=== PATIENT | female | born 1995 | race Caucasian/White ===

== ENCOUNTER 2017-10-30 01:10 | Emergency (ER) | payer OTHER ==
[~2017-10-30] VITALS: Ht 162.5 cm; Wt 72.6 kg
[~2017-10-30 01:10] MED LIST: AMOXICILLIN500 MG PO; ANAPROX DS550 MG PO; BACTRIM DS 8001 TA1 PO; BENADRYL ALLERG25 M5 PO; BIRTH CONTROL1 EAC1 PO; CATAFLAM50 MG PO; CLOTRIMAZOLE V; KEFLEX500 MG PO; LIDEX 0.05% CRE15 GM T; MACROBID100 M1 PO; MOTRIN600 MG PO; MOTRIN800 MG PO; NKHM; PRENATAL1 TA1 PO; PRENATAL1 TA2 PO; PROAIR HFA0.09 MG/AC INH; PYRIDIUM200 MG PO; TESSALON PERLE100 M1 PO; ULTRAM50 MG PO; VIBRA-TAB100 MG PO; ZOFRAN ODT4 MG SL
== END 2017-10-30 02:47 | disposition home or self-care (01) ==
LOC: ED 01:10
DX: R51 Headache (principal); R11.0 Nausea; Z79.899 Other long term (current) drug therapy; F17.200 Nicotine dependence, unspecified, uncomplicated

== ENCOUNTER 2018-12-21 19:56 | Emergency (ER) | payer SELFPAY ==
[~2018-12-21] VITALS: Ht 162.5 cm; Wt 68.0 kg
[2018-12-21] MEDS ORDERED: AMOXICILLIN500 M2 PO (20:23)
== END 2018-12-21 20:25 | disposition home or self-care (01) ==
LOC: ED 19:56
DX: K04.7 Periapical abscess without sinus (principal); F17.200 Nicotine dependence, unspecified, uncomplicated

== ENCOUNTER 2019-10-20 03:23 | Emergency (ER) | payer OTHER ==
[~2019-10-20] VITALS: Ht 162.5 cm; Wt 72.6 kg
[~2019-10-20 03:23] MED LIST changes: +AMOXICILLIN500 M2 PO
[2019-10-20] MEDS ORDERED: AMOXICILLIN500 M2 PO (04:39)
== END 2019-10-20 05:00 | disposition home or self-care (01) ==
LOC: ED 03:23
DX: K08.89 Other specified disorders of teeth and supporting structures (principal); R51 Headache; F17.200 Nicotine dependence, unspecified, uncomplicated

== ENCOUNTER 2020-01-21 03:07 | Emergency (ER) | payer OTHER ==
[~2020-01-21] VITALS: Ht 162.5 cm; Wt 68.0 kg
[~2020-01-21 03:07] MED LIST changes: -PRENA1 CHEW TA1.4 MG PO
[2020-01-21] MEDS ORDERED: PRENA1 CHEW TA1.4 MG PO (03:25)
[2020-01-21 03:44] LABS: CLARITY CLEAR (CLEAR); COLOR YELLOW (YELLOW)
[2020-01-21 03:45] LABS: BILIRUBIN NEGATIVE (NEGATIVE); BLOOD NEGATIVE (NEGATIVE); GLUCOSE NEGATIVE (NEGATIVE); KETONE NEGATIVE (NEGATIVE); LEUKO ESTERASE NEGATIVE (NEGATIVE); NITRITE NEGATIVE (NEGATIVE); SPECIFIC GRAVITY 1.025 (1.005-1.030); UROBILINOGEN 0.2 E.U./dl (0.2-1.0)
[2020-01-21 03:54] LABS: BACTERIA TRACE; EPITHELIAL CELLS 20-25; RBC 0-2 rbc/hpf (0-2); WBC 0-2 wbc/hpf (0-5)
== END 2020-01-21 05:16 | disposition home or self-care (01) ==
LOC: ED 03:07
PROVIDERS: Emergency Medicine Emergency Medical Services
DX: O26.891 Other specified pregnancy related conditions, first trimester (principal); R10.2 Pelvic and perineal pain; Z3A.01 Less than 8 weeks gestation of pregnancy

== ENCOUNTER → 2020-01-21 | Outpatient (CLI) | payer OTHER ==
[~2020-01-21] MED LIST changes: +PRENA1 CHEW TA1.4 MG PO
== END | disposition home or self-care (01) ==
LOC: US 09:58
DX: O26.891 Other specified pregnancy related conditions, first trimester (principal); Z3A.08 8 weeks gestation of pregnancy

== ENCOUNTER 2022-10-30 18:40 | Emergency (ER) | payer SELFPAY ==
[~2022-10-30] VITALS: Ht 162.5 cm; Wt 81.6 kg
[~2022-10-30 18:40] MED LIST changes: +PRENA1 CHEW TA1.4 MG PO
[2022-10-30 19:51] LABS: BASO # 0.1 10*3/uL (0.0-0.1); BASO % 0.7 % (0.0-1.0); EOS # 0.2 10*3/uL (0.0-0.4); HEMATOCRIT 39.7 % (37.0-47.0); LYMPH # 3.2 10*3/uL (1.3-4.4); LYMPH % 30.7 % (27.0-41.0); MEAN CELL VOLUME 82.9 fl (81.0-99.0); MEAN CORPUSCULAR HGB 29.9 pg (27.0-31.0); MEAN PLATELET VOLUME 9.4 fl (9.6-12.3); MONO # 0.8 10*3/uL (0.1-1.0); MONO % 7.7 % (3.0-9.0); NEUT % 58.6 % (47.0-73.0); PLATELET COUNT AUTOMATED 293 10*3/uL (130-400); RED BLOOD COUNT 4.79 10*6/uL (4.10-5.10); WHITE BLOOD COUNT 10.3 10*3/uL (4.8-10.8)
[2022-10-30 20:13] LABS: ALKALINE PHOSPHATASE 84 U/L (46-116); BUN 6 mg/dl (9-23); CHLORIDE 105 mmol/L (98-107); CREATININE 0.75 mg/dL (0.55-1.02); POTASSIUM 3.6 mmol/L (3.4-5.1); SODIUM 136 mmol/L (136-145)
[2022-10-30 20:14] LABS: SGPT/ALT < 7 U/L (10-49); TOTAL PROTEIN 6.7 gm/dL (6.0-8.0)
[2022-10-30 20:15] LABS: B-hCG (QUALITATIVE) NEGATIVE (NEGATIVE)
== END 2022-10-30 20:38 | disposition home or self-care (01) ==
LOC: ED 18:40
PROVIDERS: Physician Assistant
DX: R07.89 Other chest pain (principal); Z98.890 Other specified postprocedural states; Z79.899 Other long term (current) drug therapy

== ENCOUNTER 2025-10-14 07:58 | Emergency (ER) | payer SELFPAY ==
[~2025-10-14] VITALS: Ht 162.5 cm; Wt 72.6 kg
[2025-10-14] MEDS ORDERED: CLINDAMYCIN HC300 MG PO (08:21)
[2025-10-14] MEDS ORDERED: TYLE3UD PO (08:21)
== END 2025-10-14 09:24 | disposition home or self-care (01) ==
LOC: ED 07:58
DX: K04.7 Periapical abscess without sinus (principal); K02.9 Dental caries, unspecified